=== PATIENT | female | born 1990 | race Caucasian/White ===

== ENCOUNTER 2022-09-21 21:57 | Day surgery (SDC) | payer BC, SELFPAY ==
[2022-09-21] MEDS ORDERED: hydrALAZINE 20 MG/ML VIAL SLOW IVP PRN (23:09)
== END 2022-09-22 01:15 | disposition home or self-care (01) ==
LOC: CSHLD/OP 21:57
PROVIDERS: ATTEND Obstetrics & Gynecology
DX: O47.1 False labor at or after 37 completed weeks of gestation (principal); Z88.5 Allergy status to narcotic agent; Z3A.39 39 weeks gestation of pregnancy
CPT/HCPCS: 99283

== ENCOUNTER 2022-09-22 21:28 | Inpatient (IN) | payer BC ==
[2022-09-22] MEDS ORDERED: Ibuprofen 800 MG TAB PO PRN (21:59)
[2022-09-22] MEDS ORDERED: Lidocaine 1% (PF) 30 ML VIAL ONE (21:59)
[2022-09-22] MEDS ORDERED: Promethazine HCl 25 MG/ML VIAL IM PRN (21:59)
[2022-09-22] MEDS ORDERED: Ondansetron PF 4 MG/2 ML Vial IVP PRN (21:59)
[2022-09-22] MEDS ORDERED: NS w/ Oxytocin 30 units 500 ML ONE (21:59)
[2022-09-22] MEDS ORDERED: Misoprostol 200 MCG TAB PR PRN (21:59)
[2022-09-22] MEDS ORDERED: hydrALAZINE 20 MG/ML VIAL SLOW IVP PRN (21:59)
[2022-09-22] MEDS ORDERED: Lidocaine 1% (PF) 30 ML VIAL SC PRN (21:59)
[2022-09-22] MEDS ORDERED: Carboprost 250 MCG/ML AMP IM PRN (21:59)
[2022-09-22] MEDS ORDERED: Methylergonovine 0.2 MG/ML VIAL IM PRN (21:59)
[2022-09-22] MEDS ORDERED: Lactated Ringer's 1,000 ML IV SCH (22:00)
[2022-09-22] MEDS ORDERED: NS w/ Oxytocin 30 units 500 ML IV SCH ×2 (22:00)
[2022-09-22 22:15] LABS: Hemoglobin 12.2 g/dL (12.0-15.5); Mean Corpuscular HGB CONC 33.7 g/dL (32.0-36.0); Mean Platelet Volume 9.9 fl (7.4-10.4); Platelet Count 256 10x3/uL (150-450); RBC Distribution Width 13.4 % (11.5-14.5); Red Blood Cell (RBC) Count 4.36 10x6/uL (3.90-5.03); White Blood Cell (WBC) Count 14.9 10x3/uL (3.5-10.5)
[2022-09-22 22:45] VITALS: BMI 30.7
[2022-09-22 22:51] LABS: Syphilis Antibody Nonreactive (Nonreactive); Syphilis Antibody Index 0.05 S/CO (<1.00 Non-Reactive)
[2022-09-22 22:53] LABS: HBSAg Index 0.22 S/CO (0-0.99); Hep B Surf Ag Non-Reactive S/CO (NonReactive)
[2022-09-23 00:43] LABS: SARS-CoV-2 NAA Rapid Test DETECTED (NotDetected)
[2022-09-23] MEDS ORDERED: Ondansetron PF 4 MG/2 ML Vial IVP PRN (01:38)
[2022-09-23] MEDS ORDERED: Measles/Mumps/Rubella 10 MCG/0.5 ML VIAL SC ONE (01:38)
[2022-09-23] MEDS ORDERED: Lanolin Ointment 7 GM TUBE TOP PRN (01:38)
[2022-09-23] MEDS ORDERED: Misoprostol 200 MCG TAB VAG PRN (01:38)
[2022-09-23] MEDS ORDERED: Zolpidem Tartrate 5 MG TAB PO PRN (01:38)
[2022-09-23] MEDS ORDERED: Bisacodyl 10 MG SUPP PR PRN (01:38)
[2022-09-23] MEDS ORDERED: NS w/ Oxytocin 30 units 500 ML IV SCH (01:38)
[2022-09-23] MEDS ORDERED: Milk Of Magnesia 30 ML UDCUP PO PRN (01:38)
[2022-09-23] MEDS ORDERED: Promethazine HCl 25 MG/ML VIAL IM PRN (01:38)
[2022-09-23] MEDS ORDERED: diphenhydrAMINE 25 MG CAP PO PRN (01:38)
[2022-09-23] MEDS ORDERED: Benzocaine-Menthol 82.5 ML CAN TOP PRN (01:38)
[2022-09-23] MEDS ORDERED: Preparation H Ointment 28 GM TUBE PR PRN (01:38)
[2022-09-23] MEDS ORDERED: Boostrix 0.5 ML (Tdap) VIAL (>/=7 yrs of age) IM ONE (01:38)
[2022-09-23] MEDS ORDERED: hydrALAZINE 20 MG/ML VIAL SLOW IVP PRN (01:38)
[2022-09-23] MEDS ORDERED: Varicella virus, LIVE 0.5 ML VIAL SC ONE (01:38)
[2022-09-23] MEDS ORDERED: Methylergonovine 0.2 MG/ML VIAL IM PRN (01:38)
[2022-09-23 04:22] LABS: Mean Corpuscular HGB CONC 33.4 g/dL (32.0-36.0); Mean Corpuscular Hemoglobin 27.8 pg (27.0-33.0); Mean Corpuscular Volume 83.1 fl (81.6-98.3); Mean Platelet Volume 10.1 fl (7.4-10.4); Platelet Count 228 10x3/uL (150-450); RBC Distribution Width 13.4 % (11.5-14.5); Red Blood Cell (RBC) Count 3.96 10x6/uL (3.90-5.03); White Blood Cell (WBC) Count 16.3 10x3/uL (3.5-10.5)
[2022-09-23] MEDS: Ibuprofen 800 MG TAB PO SCH ×3 (05:40→21:25)
[2022-09-23] MEDS: Docusate 100 MG CAP PO SCH ×2 (08:41→21:26)
[2022-09-23] MEDS: Ferrous Sulfate 325 MG TAB PO SCH ×2 (08:41→17:41)
[2022-09-23] MEDS: Prenatal Vitamin 1 TAB PO SCH (14:03)
[2022-09-24] MEDS: Ibuprofen 800 MG TAB PO SCH (05:42)
[2022-09-24] MEDS: Prenatal Vitamin 1 TAB PO SCH (07:43)
[2022-09-24] MEDS: Ferrous Sulfate 325 MG TAB PO SCH (07:43)
[2022-09-24] MEDS: Docusate 100 MG CAP PO SCH (07:44)
[2022-09-24 08:49] VITALS: BP 113/66; TEMP 97.7
== END 2022-09-24 13:10 | disposition home or self-care (01) | DRG 805 ==
LOC: CSHLD/OP 21:28 → OBSVTOIN 21:59 → CSHLD 21:59 → CSHANTE 09-23 01:05
PROVIDERS: ADMIT Obstetrics & Gynecology; ATTEND Obstetrics & Gynecology
PROC: 10E0XZZ Delivery of Products of Conception, External Approach (ICD-10-PCS; principal; 2022-09-22)
PROC: 8E0ZXY6 Isolation (ICD-10-PCS; 2022-09-22)
DX: O42.02 Full-term premature rupture of membranes, onset of labor within 24 hours of rupture (principal); U07.1 COVID-19; Z37.0 Single live birth; O98.52 Other viral diseases complicating childbirth; Z3A.39 39 weeks gestation of pregnancy; Z88.6 Allergy status to analgesic agent
CPT/HCPCS: 36415; 85027; 86780; 86850; 86900; 86901; 87340; 99283; 99285; J2001; J2590; J7120; U0002

== ENCOUNTER 2025-08-15 18:00 | Inpatient (IN) | payer SELFPAY ==
[~2025-08-15 18:00] MED LIST: Bupivacaine 0.25% HCL 30 ML VIAL ONE
[2025-08-15 20:59] VITALS: BMI 31.6
[2025-08-15] MEDS ORDERED: Tranexamic Acid 1,000 MG/10 ML VIAL IVP PRN (21:21)
[2025-08-15] MEDS ORDERED: Diphenoxylate HCl/Atropine Tablet PO PRN ×2 (21:21)
[2025-08-15] MEDS ORDERED: Acetaminophen 500 MG TAB PO PRN (21:21)
[2025-08-15] MEDS ORDERED: hydrALAZINE 20 MG/ML VIAL SLOW IVP PRN (21:21)
[2025-08-15] MEDS ORDERED: Lidocaine 1% (PF) 30 ML VIAL SC PRN (21:21)
[2025-08-15] MEDS ORDERED: Methylergonovine 0.2 MG/ML VIAL IM PRN (21:21)
[2025-08-15] MEDS ORDERED: Ondansetron PF 4 MG/2 ML Vial IVP PRN (21:21)
[2025-08-15] MEDS: Penicillin G Potassium 5 MILL.UNITS in Sodium Chloride 0.9% 100 ML IVPB SCH (21:50)
[2025-08-15 22:31] LABS: Hematocrit 35.8 % (34.9-44.5); Hemoglobin 11.7 g/dL (12.0-15.5); Mean Corpuscular Hemoglobin 27.6 pg (27.0-33.0); Mean Corpuscular Volume 84.4 fL (81.6-98.3); Platelet Count 246 10x3/uL (150-450); Red Blood Cell (RBC) Count 4.24 10x6/uL (3.90-5.03); White Blood Cell (WBC) Count 7.52 10x3/uL (3.5-10.5)
[2025-08-15 23:06] LABS: Syphilis Antibody Index 0.10 S/CO (<1.00 Non-Reactive)
[2025-08-15 23:07] LABS: Hep B Surf Ag - L&D Non-Reactive S/CO (NonReactive)
[2025-08-15] MEDS: Famotidine 20 MG TAB PO SCH (23:27)
[2025-08-16] MEDS: Penicillin G 2.5 MILL.units 2.5 MILL.UNITS in Premix 1 BAG IVPB SCH (01:46)
[2025-08-16] MEDS: Oxytocin 30 units/NS 500 ML 500 ML IV SCH ×2 (06:32→10:43)
[2025-08-16] MEDS ORDERED: diphenhydrAMINE 50 MG/ML VIAL IVP PRN (08:31)
[2025-08-16] MEDS ORDERED: Ondansetron PF 4 MG/2 ML Vial IVP PRN (08:31)
[2025-08-16] MEDS ORDERED: Acetaminophen 325 MG TAB PO PRN (08:31)
[2025-08-16] MEDS ORDERED: fentaNYL 2 mcg/Ropivacaine 0.2% Epidural 100 ML CADD EPIDURAL SCH (08:45)
[2025-08-16] MEDS ORDERED: Communication Order-Pharmacy FS SCH (08:45)
[2025-08-16] MEDS: fentaNYL/Ropivacaine Epidural 100 ML ONE (09:00)
[2025-08-16] MEDS: Ibuprofen 800 MG TAB PO PRN (13:02)
[2025-08-16] MEDS ORDERED: diphenhydrAMINE 25 MG CAP PO PRN (13:20)
[2025-08-16] MEDS ORDERED: Milk Of Magnesia 30 ML UDCUP PO PRN (13:20)
[2025-08-16] MEDS ORDERED: Preparation H Ointment 28 GM TUBE PR PRN (13:20)
[2025-08-16] MEDS ORDERED: Bisacodyl 10 MG SUPP PR PRN (13:20)
[2025-08-16] MEDS ORDERED: hydrALAZINE 20 MG/ML VIAL SLOW IVP PRN (13:20)
[2025-08-16] MEDS ORDERED: Benzocaine-Menthol 82.5 ML CAN TOP PRN (13:20)
[2025-08-16] MEDS: Ferrous Sulfate 325 MG TAB PO SCH (17:22)
[2025-08-16] MEDS: Ibuprofen 800 MG TAB PO SCH (20:51)
[2025-08-17 11:42] VITALS: BP 110/61; TEMP 98.4
== END 2025-08-17 13:30 | disposition home or self-care (01) | DRG 807 ==
LOC: CSHLD 20:24 → CSHPP 08-16 14:12
PROVIDERS: ADMIT Obstetrics & Gynecology; ATTEND Obstetrics & Gynecology
PROC: 0HQ9XZZ Repair Perineum Skin, External Approach (ICD-10-PCS; principal; 2025-08-15)
PROC: 10E0XZZ Delivery of Products of Conception, External Approach (ICD-10-PCS; 2025-08-15)
DX: O99.824 Streptococcus B carrier state complicating childbirth (principal); Z37.0 Single live birth; O70.0 First degree perineal laceration during delivery
CPT/HCPCS: 51702; 85027; 86780; 86850; 86900; 86901; 87340; J0665; J2540; J2590